=== PATIENT | male | born 1975 | race Caucasian/White ===

== ENCOUNTER 2018-07-12 12:06 | Emergency (ER) | payer SELFPAY ==
[~2018-07-12] VITALS: Ht 172.7 cm; Wt 90.0 kg
[2018-07-12] MEDS ORDERED: LORAZEPAM 2 MG INJ ONE (12:07)
[2018-07-12 12:10] VITALS: Ht 172.7 cm; Wt 90.0 kg
--- NOTE | 2018-07-12 12:18 | ERD ---
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 He has been using amphetamine and Adderall and heroin. He denies suicidal/homicidal ideation, visual/auditory hallucination, denies headache, neck pain, chest pain, dyspnea, abdominal pain, vomiting, dysuria, diarrhea. He smokes and drinks and does illicit drug Past medical history: Hypertension, neuropathy Surgical history: Left orchiectomy due to testicular cancer ROS All systems reviewed and are negative except as per history of present illness. Medications Home Meds Unable to Obtain Active Prescriptions or Reported Meds Allergies Allergies: Coded Allergies: Unable to Assess (Verified Allergy, Severe, 07/12/18) PMhx/Soc Hx Miscellaneous Medical Probl: Yes (meth use) Hx Alcohol Use: Yes Hx Tobacco Use: Yes Smoking Status: Current every day smoker Physical Exam Vitals Vital Signs Date Temp Pulse Resp B/P (MAP) Pulse Ox O2 O2 Flow FiO2 Time Delivery Rate 07/12/18 115 25 96 Room Air 14:00 07/12/18 98.9 110 24 140/85 96 12:10 (103) Physical Exam Const: No acute distress. Head: Atraumatic. Eyes: Normal Conjunctiva. ENT: Normal External Ears, Nose and Mouth. Neck: Full range of motion. No meningismus. Resp: Clear to auscultation bilaterally. Cardio: Regular tachycardic Abd: Soft, non distended, normal bowel sounds, non tender. Skin: No petechiae or rashes. Back: No midline or flank tenderness. Ext: No cyanosis, or edema. Neur: Awake and alert. No focal deficit Psych: Agitated, anxious Result Diagram: 07/12/18 1258 07/12/18 1259 Results 24 hrs Laboratory Tests Test 07/12/18 12:52 07/12/18 12:57 07/12/18 12:58 07/12/18 12:59 Urine Color BRAEDEN Urine Clarity SLIGHTLY CLOUDY Urine pH 5.0 Urine Specific 1.024 Marcellus Urine Ketones 1+ mg/dL Urine Nitrite NEGATIVE mg/dL Urine Bilirubin NEGATIVE mg/dL Urine NEGATIVE mg/dL Urobilinogen Urine Leukocyte NEGATIVE Teresa/ul Esterase Urine Microscopic 1 /HPF RBC Urine Microscopic 7 /HPF WBC Urine Squamous FEW /HPF Epithelial Cells Urine Hyaline FEW /HPF Casts Urine Mucus MANY /HPF Urine Hemoglobin NEGATIVE mg/dL Urine Glucose NEGATIVE mg/dL Urine Total 2+ mg/dl Protein Urine Opiates Negative Screen Urine Negative Barbiturates Urine POSITIVE Amphetamines Screen Urine Negative Benzodiazepines Screen Urine Cocaine Negative Screen Urine Negative Cannabinoids Bedside Glucose 80 mg/dL White Blood Count 28.9 10^3/ul Red Blood Count 5.91 10^6/ul Hemoglobin 16.7 g/dl Hematocrit 48.5 % Mean Corpuscular 82.1 fl Volume Mean Corpuscular 28.3 pg Hemoglobin Mean Corpuscular 34.4 g/dl Hemoglobin Concen t Red Cell 12.4 % Distribution Width Platelet Count 435 10^3/UL Mean Platelet 10.3 fl Volume Immature 1.000 % Granulocytes % Neutrophils % 85.8 % Lymphocytes % 5.2 % Monocytes % 7.6 % Eosinophils % 0.0 % Basophils % 0.4 % Nucleated Red 0.0 /100WBC Blood Cells % Immature 0.280 10^3/ul Granulocytes # Neutrophils # 24.8 10^3/ul Lymphocytes # 1.5 10^3/ul Monocytes # 2.2 10^3/ul Eosinophils # 0.0 10^3/ul Basophils # 0.1 10^3/ul Nucleated Red 0.0 10^3/ul Blood Cells # Sodium Level 143 mmol/L Potassium Level 4.0 mmol/L Chloride Level 106 mmol/L Carbon Dioxide 22 mmol/L Level Anion Gap 15 Blood Urea 27 mg/dl Nitrogen Creatinine 1.47 mg/dl Est Glomerular 53 mL/min Filtrat Rate mL/min Glucose Level 84 mg/dl Calcium Level 10.0 mg/dl Total Bilirubin 0.9 mg/dl Direct Bilirubin 0.00 mg/dl Indirect 0.9 mg/dl Bilirubin Aspartate Amino 52 IU/L Transf (AST/SGOT) Alanine 41 IU/L Aminotransferase (ALT/SGPT) Alkaline 56 IU/L Phosphatase Creatine Kinase 766 IU/L Total Protein 8.7 g/dl Albumin 5.0 g/dl Globulin 3.70 g/dl Albumin/Globulin 1.35 Ratio Salicylates Level < 1.0 mg/dl Acetaminophen < 10.0 ug/ml Level Ethyl Alcohol < 10.0 mg/dl Level Current Medications Medications Dose Sig/Cuca Start Time Status Last (Trade) Ordered Route PRN Stop Time Admin Dose Reason Admin Lorazepam 2 mg ONCE ONCE 07/12/18 DC 07/12/18 (Ativan) IM 12:30 12:45 07/12/18 12:31 Lorazepam 2 mg ONCE ONCE 07/12/18 DC 07/12/18 (Ativan) IM 12:30 12:10 07/12/18 12:31 Haloperidol 5 mg ONCE ONCE 07/12/18 DC 07/12/18 (Haldol) IM 13:30 13:16 07/12/18 13:31 50 mg ONCE ONCE 07/12/18 DC 07/12/18 Diphenhydrami IM 13:30 13:16 ne HCl 07/12/18 13:31 (Benadryl) Olanzapine 10 mg ONCE ONCE 07/12/18 DC 07/12/18 (Zyprexa) IM 13:30 13:31 07/12/18 13:31 Procedures/MDM MEDICAL MAKING DECISION: The patient is a 42-year-old male, presenting to the ER because of acute amphetamine abuse, acute leukocytosis most likely due to acute amphetamine abuse, renal insufficiency. He was very agitated and treated with Ativan 2 mg IM x2 in the ER with minimal response, he was therefore treated today with good response. He is currently resting comfortably The differential diagnoses considered include but are not limited to drug- induced psychosis, psychosis, anxiety attack, panic attack, decompensated psychiatric illness Departure Diagnosis: Primary Impression: Drug abuse Additional Impressions: Leukocytosis Acute renal insufficiency Condition: Stable Comments When he nicky, he will be evaluated by telepsychiatrist MIKY ROBERT MD Jul 12, 2018 12:18
[2018-07-12] MEDS ORDERED: LORAZEPAM 2 MG INJ IM ONE ×2 (12:30)
[2018-07-12] MEDS ORDERED: OLANZAPINE 10 MG VIAL IM ONE (13:30)
[2018-07-12] MEDS ORDERED: HALOPERIDOL 5 MG INJ IM ONE (13:30)
[2018-07-12] MEDS ORDERED: DIPHENHYDRAMINE 50 MG INJ IM ONE (13:30)
[2018-07-12 21:24] VITALS: BP 133/97; PULSE 97; RESP 16
[2018-07-12] MEDS ORDERED: LORAZEPAM 1 MG TAB PO ONE (22:00)
== END 2018-07-13 01:00 | disposition home or self-care (01) ==
LOC: E/R 12:06
DX: F15.10 Other stimulant abuse, uncomplicated (principal); D72.829 Elevated white blood cell count, unspecified; N28.9 Disorder of kidney and ureter, unspecified; F17.210 Nicotine dependence, cigarettes, uncomplicated; I10 Essential (primary) hypertension; Z85.47 Personal history of malignant neoplasm of testis
CPT/HCPCS: 71045; 80053; 80307; 81001; 82550; 82962; 85025; 96372; 99284; J1200; J1630; J2060

== ENCOUNTER 2018-11-22 23:59 | Emergency (ER) | payer OTHER ==
[~2018-11-22] VITALS: Ht 170.2 cm; Wt 89.0 kg
[2018-11-23 00:13] VITALS: Ht 170.2 cm; Wt 89.0 kg
--- NOTE | 2018-11-23 00:17 | ERD ---
ER Documentation Chief Complaint Chief Complaint sz HPI The patient is a 42-year-old male, presenting to the ER from a detox center be cause of seizure lasted for approximately a minute, began 30 minutes prior to arrival. He has been in detox for the last 5 days for benzodiazepine detox. He has been taking Xanax 2 mg twice daily for 4 years. Once he was admitted to the detox center, he has been on 10-day tapering of Valium, beginning of 60 mg daily to 30 mg daily today. His last Valium was about 3 hours prior to arrival. He de nies headache, neck pain, chest pain, dyspnea, abdominal pain, vomiting, tongue bite, complains of urinary incontinence. He has h/o amphetamine and Adderall and heroin. He denies suicidal/homicidal ideation, visual/auditory hallucination, denies headache, neck pain, chest pain, dyspnea, abdominal pain, vomiting, dysuria, diarrhea. He smokes and drinks and does illicit drug He is awake, alert, able to answer question appropriately in the emergency department Past medical history: Hypertension, neuropathy Surgical history: Left orchiectomy due to testicular cancer ROS All systems reviewed and are negative except as per history of present illness. Medications Home Meds Unable to Obtain Active Prescriptions or Reported Meds Allergies Allergies: Coded Allergies: codeine (Verified Allergy, Intermediate, hives, facial/hand swelling, 11/23/18) PMhx/Soc Hx Miscellaneous Medical Probl: Yes (meth use) Hx Alcohol Use: Yes Hx Tobacco Use: Yes Physical Exam Vitals Vital Signs Date Temp Pulse Resp B/P (MAP) Pulse Ox O2 O2 Flow FiO2 Time Delivery Rate 11/23/18 98.8 129 23 146/97 99 00:13 (113) Physical Exam Const: No acute distress. Head: Atraumatic. Eyes: Normal Conjunctiva. ENT: Normal External Ears, Nose and Mouth. Neck: Full range of motion. No meningismus. Resp: Clear to auscultation bilaterally. Cardio: Regular tachycardic Abd: Soft, non distended, normal bowel sounds, non tender. Skin: No petechiae or rashes. Back: No midline or flank tenderness. Ext: No cyanosis, or edema. Neur: Awake and alert. No focal deficit Psych: Normal Mood and Affect. Result Diagram: 11/23/18711/23/187 Results 24 hrs Laboratory Tests Test 11/23/18 00:08 White Blood Count 9.6 10^3/ul Red Blood Count 4.76 10^6/ul Hemoglobin 13.6 g/dl Hematocrit 40.4 % Mean Corpuscular Volume 84.9 fl Mean Corpuscular Hemoglobin 28.6 pg Mean Corpuscular Hemoglobin Concent 33.7 g/dl Red Cell Distribution Width 14.0 % Platelet Count 358 10^3/UL Mean Platelet Volume 10.7 fl Immature Granulocytes % 0.500 % Neutrophils % 56.7 % Lymphocytes % 31.5 % Monocytes % 8.0 % Eosinophils % 2.8 % Basophils % 0.5 % Nucleated Red Blood Cells % 0.0 /100WBC Immature Granulocytes # 0.050 10^3/ul Neutrophils # 5.4 10^3/ul Lymphocytes # 3.0 10^3/ul Monocytes # 0.8 10^3/ul Eosinophils # 0.3 10^3/ul Basophils # 0.1 10^3/ul Nucleated Red Blood Cells # 0.0 10^3/ul Sodium Level 141 mmol/L Potassium Level 4.3 mmol/L Chloride Level 106 mmol/L Carbon Dioxide Level 27 mmol/L Anion Gap 8 Blood Urea Nitrogen 19 mg/dl Creatinine 1.01 mg/dl Est Glomerular Filtrat Rate mL/min > 60 mL/min Glucose Level 103 mg/dl Calcium Level 9.2 mg/dl Ethyl Alcohol Level < 10.0 mg/dl Current Medications Medications Dose Sig/Cuca Start Time Status Last (Trade) Ordered Route PRN Stop Time Admin Dose Reason Admin Lorazepam 2 mg ONCE STAT 11/23/18 DC 11/23/18 (Ativan) IV 00:19 00:35 11/23/18 00:20 Lorazepam 2 mg ONCE ONCE 11/23/18 DC 11/23/18 (Ativan) IV 02:00 01:57 11/23/18 02:01 Procedures/MDM EKG: Read by emergency physician Rate/Rhythm: Sinus tachycardia 114 beats/min QRS, ST, T-waves: No ST elevation, no T inversion, LAE Impression: Abnormal EKG MEDICAL MAKING DECISION: The patient is a 42-year-old male, presenting with possible acute seizure due to rapid benzodiazepine withdrawal, acute anxiety. He was treated with Ativan 2 mg IV x2 over many hours with good response, is stable for outpatient follow-up The differential diagnoses considered include but are not limited to benzodiazepine withdrawal, alcohol withdrawal, substance abuse, anxiety Departure Diagnosis: Primary Impression: Benzodiazepine withdrawal Additional Impression: Anemia Condition: Good Comments I discussed the findings with the patient. I advised the patient to follow-up with the primary physician in about 1-2 days, sooner if needed and return if any concern. Disclaimer: Inadvertent spelling and grammatical errors are likely due to EHR/dictation software use and do not reflect on the overall quality of patient care. Also, please note that the electronic time recorded on this note does not necessarily reflect the actual time of the patient encounter. MIKY ROBERT MD Nov 23, 2018 00:17
[2018-11-23] MEDS ORDERED: LORAZEPAM 2 MG INJ IV STA (00:19)
[2018-11-23] MEDS ORDERED: LORAZEPAM 2 MG INJ IV ONE (02:00)
[2018-11-23 02:32] VITALS: BP 99/77; PULSE 114; RESP 20
== END 2018-11-23 02:35 | disposition home or self-care (01) ==
LOC: E/R 23:59
DX: F13.239 Sedative, hypnotic or anxiolytic dependence with withdrawal, unspecified (principal); I10 Essential (primary) hypertension; D64.9 Anemia, unspecified; R40.2142 Coma scale, eyes open, spontaneous, at arrival to emergency department; R40.2362 Coma scale, best motor response, obeys commands, at arrival to emergency department; R40.2252 Coma scale, best verbal response, oriented, at arrival to emergency department; Z85.47 Personal history of malignant neoplasm of testis; Z87.891 Personal history of nicotine dependence
CPT/HCPCS: 36415; 80048; 80307; 85025; 93005; 96374; 96376; 99284; J2060